=== PATIENT | male | born 1965 | race Caucasian/White ===

== ENCOUNTER 2018-07-13 16:21 | Emergency (ER) | payer OTHER ==
[~2018-07-13] VITALS: Ht 170.2 cm; Wt 81.8 kg
[2018-07-13 16:24] VITALS: BP 135/99
[2018-07-13 16:54] LABS: BASOPHILS # (AUTO) 0.1 X10'3 (0-0.2); BASOPHILS % (AUTO) 0.7 % (0-1); EOSINOPHILS # (AUTO) 1.2 X10'3 (0-0.9); EOSINOPHILS % (AUTO) 14.6 % (0-6); HEMATOCRIT 45.7 % (42.0-52.0); LYMPHOCYTES # (AUTO) 1.7 X10'3 (1.1-4.8); LYMPHOCYTES % (AUTO) 20.6 % (21-51); MEAN CORPUSCULAR HEMOGLOBIN 29.7 PG (27.0-31.0); MEAN CORPUSCULAR HGB CONC 32.8 % (33.0-36.5); MEAN CORPUSCULAR VOLUME 90.5 FL (78-98); MEAN PLATELET VOLUME 7.3 FL (7.4-10.4); MONOCYTES # (AUTO) 0.7 X10'3 (0-0.9); MONOCYTES % (AUTO) 8.1 % (2-12); NEUTROPHILS # (AUTO) 4.7 X10'3 (1.8-7.7); PLATELET COUNT 296 X10'3 (140-440); RED BLOOD COUNT 5.05 X10'6 (4.70-6.10); RED CELL DISTRIBUTION WIDTH 12.5 % (11.5-14.5); WHITE BLOOD COUNT 8.5 X10'3 (4.5-11.0)
[2018-07-13 17:04] LABS: ALANINE AMINOTRANSFERASE 29 U/L (12-78); ALBUMIN 4.2 G/DL (3.4-5.0); ALBUMIN/GLOBULIN RATIO 1.2 (1.1-1.5); ALKALINE PHOSPHATASE 60 IU/L (46-116); ANION GAP 13 (8-16); ASPARTATE AMINO TRANSFERASE 17 U/L (10-37); BILIRUBIN,TOTAL 0.3 MG/DL (0.1-1.0); BLOOD UREA NITROGEN 15 MG/DL (7-18); BUN/CREATININE RATIO 17.2 (5.4-32.0); CALCIUM 8.9 MG/DL (8.5-10.1); CHLORIDE 103 MMOL/L (99-107); CREATININE 0.87 MG/DL (0.60-1.10); GLUCOSE 98 MG/DL (70-104); POTASSIUM 4.1 MMOL/L (3.5-5.1); SODIUM 140 MMOL/L (135-145); TOTAL CARBON DIOXIDE 23.8 MMOL/L (24-32); TOTAL PROTEIN 7.6 G/DL (6.4-8.2); eGFR > 90 ML/MIN
[2018-07-13 17:05] LABS: PARTIAL THROMBOPLASTIN TIME 26 SECONDS (22-32); PROTHROMBIN TIME 10.2 SECONDS (9.0-12.0)
[2018-07-13] MEDS ORDERED: albuterol 2.5 MG/3 ML nebule NEB ONE (17:45)
[2018-07-13] MEDS ORDERED: ipratropium/albuterol 3ml nebule NEB ONE (17:55)
[2018-07-13] MEDS ORDERED: predniSONE 20 mg tablet PO ONE (17:55)
[2018-07-13] MEDS ORDERED: ALBU2.5V12 NEB (18:32)
[2018-07-13] MEDS ORDERED: PRED20TA PO (18:32)
[2018-07-13] MEDS ORDERED: BUDE10.2 INH (18:32)
== END 2018-07-13 18:55 | disposition home or self-care (01) ==
LOC: ER 16:22
DX: J44.1 Chronic obstructive pulmonary disease with (acute) exacerbation (principal); Z76.0 Encounter for issue of repeat prescription; Z87.891 Personal history of nicotine dependence; Z79.899 Other long term (current) drug therapy; Z88.6 Allergy status to analgesic agent
CPT/HCPCS: 36415; 71045; 80053; 84484; 85025; 85610; 85730; 93005; 94640; 94760; 99284; J7512

== ENCOUNTER 2018-08-25 12:17 | Emergency (ER) | payer MEDICAID ==
[~2018-08-25] VITALS: Ht 170.2 cm; Wt 83.7 kg
[~2018-08-25 12:17] MED LIST: ALBU2.5V12 NEB; BUDE10.2 INH
[2018-08-25 12:33] VITALS: BP 163/129
[2018-08-25] MEDS ORDERED: predniSONE 20 mg tablet PO ONE (14:00)
[2018-08-25] MEDS ORDERED: levoFLOXACIN 750MG TABLET PO ONE (14:00)
[2018-08-25] MEDS ORDERED: ipratropium/albuterol 3ml nebule NEB ONE (14:00)
[2018-08-25] MEDS ORDERED: BUDE10.2 INH (14:01)
[2018-08-25] MEDS ORDERED: ALBU8.5H8 INH (14:01)
[2018-08-25] MEDS ORDERED: PRED20TA PO (14:02)
[2018-08-25] MEDS ORDERED: LEVO750T21 PO (14:02)
== END 2018-08-25 19:12 | disposition home or self-care (01) ==
LOC: ER 12:17
DX: J44.1 Chronic obstructive pulmonary disease with (acute) exacerbation (principal); Z88.6 Allergy status to analgesic agent
CPT/HCPCS: 94640; 99283; J7512

== ENCOUNTER 2019-03-05 09:27 | Emergency (ER) | payer MEDICAID, OTHER ==
[~2019-03-05] VITALS: Ht 170.2 cm; Wt 81.0 kg
[~2019-03-05 09:27] MED LIST changes: +ALBU8.5H8 INH
[2019-03-05] MEDS ORDERED: ipratropium/albuterol 3ml nebule NEB ONE (10:20)
[2019-03-05] MEDS ORDERED: BUDE10.2 INH (10:22)
[2019-03-05] MEDS ORDERED: ALBU18HF2 INH (10:22)
[2019-03-05 10:46] VITALS: BP 138/74
== END 2019-03-05 10:51 | disposition home or self-care (01) ==
LOC: ER 09:27
DX: J44.1 Chronic obstructive pulmonary disease with (acute) exacerbation (principal); Z76.0 Encounter for issue of repeat prescription; Z88.6 Allergy status to analgesic agent; Z79.899 Other long term (current) drug therapy; Z87.891 Personal history of nicotine dependence
CPT/HCPCS: 94640; 94760; 99283

== ENCOUNTER 2023-09-13 01:13 | Emergency (ER) | payer MEDICAID ==
[~2023-09-13] VITALS: Ht 180.3 cm; Wt 81.8 kg
[~2023-09-13 01:13] MED LIST changes: +ALBU18HF2 INH; +ALBU8.5H17 INH; -ALBU8.5H8 INH
[2023-09-13 01:35] VITALS: TEMP 97.9
[2023-09-13] MEDS: methylPREDNISolone sod succ 125mg/2ml vial IV ONE (05:16)
[2023-09-13 05:18] LABS: BASOPHILS # (AUTO) 0.1 X10'3 (0-0.2); BASOPHILS % (AUTO) 1.2 % (0-1); EOSINOPHILS # (AUTO) 1.4 X10'3 (0-0.9); EOSINOPHILS % (AUTO) 15.6 % (0-6); HEMATOCRIT 47.7 % (42.0-52.0); HEMOGLOBIN 16.1 g/dl (14.0-17.9); LYMPHOCYTES # (AUTO) 1.6 X10'3 (1.1-4.8); MEAN CORPUSCULAR HEMOGLOBIN 31.7 PG (27.0-31.0); MEAN CORPUSCULAR HGB CONC 33.8 g/dL (33.0-36.5); MEAN CORPUSCULAR VOLUME 93.6 FL (78-98); MEAN PLATELET VOLUME 7.1 FL (7.4-10.4); MONOCYTES # (AUTO) 0.8 X10'3 (0-0.9); MONOCYTES % (AUTO) 8.9 % (2-12); NEUTROPHILS % (AUTO) 56.3 % (42-75); PLATELET COUNT 263 X10'3 (140-440); RED CELL DISTRIBUTION WIDTH 14.4 % (11.5-14.5); WHITE BLOOD COUNT 8.8 X10'3 (4.5-11.0)
[2023-09-13] MEDS: albuterol 2.5 MG/3 ML nebule CONTNEB PRN (05:21)
[2023-09-13] MEDS: ipratropium 0.5 MG/2.5ML nebule IH ONE (05:22)
[2023-09-13 05:24] VITALS: PULSE 68; RESP 22; O2SAT 97
[2023-09-13 05:34] LABS: ALBUMIN 4.1 G/DL (3.4-5.0); ANION GAP 9 (8-16); BLOOD UREA NITROGEN 11 MG/DL (7-18); BUN/CREATININE RATIO 10.8 (10.0-20.0); CHLORIDE 106 MMOL/L (99-107); CREATININE 1.02 MG/DL (0.60-1.10); GLUCOSE 98 MG/DL (70-104); POTASSIUM 4.5 MMOL/L (3.5-5.1); PRO BRAIN NATRIURETIC PEPTIDE 42 PG/ML (0-125); SODIUM 141 MMOL/L (135-145); TOTAL CARBON DIOXIDE 26.4 MMOL/L (24-32); eCRCL 85 ML/MIN; eGFR 75 ML/MIN
[2023-09-13 06:59] VITALS: BP 145/82; PULSE 100; RESP 18; O2SAT 96
[2023-09-13] MEDS ORDERED: PRED20TA PO (07:03)
[2023-09-13] MEDS ORDERED: ALB0.5UD NEB (07:03)
[2023-09-13] MEDS ORDERED: ALBU8HFA INH (07:03)
[2023-09-13] MEDS ORDERED: AMOX-117 PO (07:03)
== END 2023-09-13 07:18 | disposition home or self-care (01) ==
LOC: ER 01:14
DX: J44.1 Chronic obstructive pulmonary disease with (acute) exacerbation (principal); R05.9 Cough, unspecified; Z79.899 Other long term (current) drug therapy; Z79.2 Long term (current) use of antibiotics; Z87.891 Personal history of nicotine dependence
CPT/HCPCS: 36415; 71045; 80048; 83880; 84484; 85025; 93005; 94640; 96374; 99285; J2930; 94760; A7015

== ENCOUNTER 2024-09-16 20:55 | Emergency (ER) | payer MEDICAID ==
[~2024-09-16] VITALS: Ht 170.2 cm; Wt 84.1 kg
[2024-09-16 21:01] VITALS: BP 140/82; PULSE 90; RESP 18; O2SAT 97
[2024-09-16] MEDS ORDERED: ERYT1OIN6 EACHEYE (22:48)
[2024-09-16 23:05] VITALS: TEMP 97.4
[2024-09-16] MEDS: erythromycin ophthalmic ointment 1gm tube EACHEYE ONE (23:07)
== END 2024-09-16 23:10 | disposition home or self-care (01) ==
LOC: ER 20:56
DX: H10.89 Other conjunctivitis (principal); J44.9 Chronic obstructive pulmonary disease, unspecified; Z88.6 Allergy status to analgesic agent
CPT/HCPCS: 99283

== ENCOUNTER 2024-10-14 10:10 | Emergency (ER) | payer MEDICAID ==
[~2024-10-14] VITALS: Ht 170.2 cm; Wt 91.7 kg
[2024-10-14 10:14] VITALS: BP 178/121; PULSE 79; RESP 16; O2SAT 97
[2024-10-14] MEDS: triamcinolone acetonide 40mg/ml inj IM ONE (10:44)
[2024-10-14 10:50] VITALS: TEMP 98.2
== END 2024-10-14 10:52 | disposition home or self-care (01) ==
LOC: ER 10:11
DX: J30.2 Other seasonal allergic rhinitis (principal); I10 Essential (primary) hypertension; J44.9 Chronic obstructive pulmonary disease, unspecified; Z88.6 Allergy status to analgesic agent; Z79.899 Other long term (current) drug therapy
CPT/HCPCS: 96372; 99283; J3301